=== PATIENT | female | born 1975 | race Caucasian/White ===

== ENCOUNTER → 2017-07-31 | Outpatient (CLI) | payer BC ==
[~2017-07-31] MED LIST: ALBU90AE IH; CETI-101 PO; CLOB30CR27 TP; DIPH25CA83 PO; DIPH25TA23 PO; FLU60SYR *; LEVO500T2 PO; LORA2TAB2 PO; MONT10TA21 PO; TC1U15 TOP; ZOLP10TA6 PO
[2017-08-01 06:56] LABS: BASOPHILS % 0.5 % (0.0-2.0); EOSINOPHILS % 1.4 % (0.0-5.0); HEMATOCRIT. 36.1 % (36.0-48.0); HEMOGLOBIN. 12.3 g/dL (12.0-16.0); LYMPHOCYTES % 40.2 % (20.0-50.0); MEAN CORPUSCULAR HEMOGLOBIN 31.4 pg (28.0-32.0); MEAN CORPUSCULAR VOLUME 92.1 fL (81.0-99.0); MEAN PLATELET VOLUME 8.2 fl (7.4-10.4); MONOCYTES % 6.3 % (2.0-8.0); NEUTROPHILS % 51.6 % (40.0-76.0); PLATELET 285 x1000/uL (130-400); RED BLOOD CELL COUNT 3.92 mill/uL (4.2-5.4); RED CELL DISTRIBUTION WIDTH 12.9 % (11.6-14.6)
[2017-08-01 07:15] LABS: CHLORIDE 103 mEq/L (98-107)
[2017-08-01 07:28] LABS: HDL CHOLESTEROL 75 mg/dL (40-59); LDL CHOLESTEROL 84 mg/dL (5-100); TOTAL IRON BINDING CAPACITY 394 ug/dL (250-450)
== END | disposition home or self-care (01) ==
LOC: LAB 21:13
PROVIDERS: ATTEND Internal Medicine Critical Care Medicine
DX: K59.00 Constipation, unspecified (principal); K42.9 Umbilical hernia without obstruction or gangrene; M54.5 Low back pain; R79.89 Other specified abnormal findings of blood chemistry
CPT/HCPCS: 36415; 80053; 80061; 82306; 83540; 83550; 85025

== ENCOUNTER 2017-08-26 01:52 | Emergency (ER) | payer BC ==
[~2017-08-26] VITALS: Ht 167.6 cm; Wt 65.9 kg
[2017-08-26] MEDS ORDERED: SODIUM CHLORIDE 0.9% 1,000 ML IV SCH (02:23)
[2017-08-26] MEDS ORDERED: DIPHENHYDRAMINE 50MG/ML VIAL IV ONE (02:30)
[2017-08-26] MEDS ORDERED: METHYLPREDNISOLONE SOD SUCC 125 MG/2 ML VIAL IV ONE (02:30)
[2017-08-26] MEDS ORDERED: FAMOTIDINE 20MG/2ML VIAL IV ONE (02:30)
[2017-08-26] MEDS ORDERED: HYDROXYZINE 25MG TABLET PO ONE (05:45)
[2017-08-26 06:08] VITALS: BP 131/74
== END 2017-08-26 07:00 | disposition home or self-care (01) ==
LOC: ER 01:52
DX: T78.40XA Allergy, unspecified, initial encounter (principal); J45.909 Unspecified asthma, uncomplicated; L30.9 Dermatitis, unspecified
CPT/HCPCS: 96374; 96375; 99284; J1200; J2930; J3490; J7030; Z7610

== ENCOUNTER → 2017-09-29 | Outpatient (CLI) | payer BC ==
[2017-09-29 11:27] LABS: PARTIAL THROMBOPLASTIN TIME 26.4 sec (23.4-31.0); PROTHROMBIN TIME 10.3 sec (9.4-11.6)
[2017-09-29 11:28] LABS: BASOPHILS % 0.4 % (0.0-2.0); CLARITY URINE CLEAR (CLEAR); COLOR URINE YELLOW (YELLOW); EOSINOPHILS % 1.3 % (0.0-5.0); HEMATOCRIT. 39.3 % (36.0-48.0); HEMOGLOBIN. 12.9 g/dL (12.0-16.0); KETONES URINE NEGATIVE (NEGATIVE); LEUKOCYTE ESTERASE URINE 2+ (NEGATIVE); LYMPHOCYTES % 31.3 % (20.0-50.0); MEAN CORPUSCULAR HEMOGLOBIN 30.9 pg (28.0-32.0); MEAN CORPUSCULAR VOLUME 93.7 fL (81.0-99.0); MONOCYTES % 6.1 % (2.0-8.0); NEUTROPHILS % 60.9 % (40.0-76.0); NITRITE URINE POSITIVE (NEGATIVE); OCCULT BLOOD URINE NEGATIVE (NEGATIVE); PH URINE 5.5 (4.5-8.0); PLATELET 317 x1000/uL (130-400); PROTEIN URINE NEGATIVE (NEGATIVE); RED BLOOD CELL COUNT 4.19 mill/uL (4.2-5.4); RED CELL DISTRIBUTION WIDTH 13.3 % (11.6-14.6); SPECIFIC GRAVITY URINE 1.021 (1.005-1.030); UROBILINOGEN URINE 0.2 E.U./dL (0.2-1.0)
[2017-09-29 11:32] LABS: CHLORIDE 106 mEq/L (98-107)
== END | disposition home or self-care (01) ==
LOC: LAB 10:51
PROVIDERS: ATTEND Internal Medicine Critical Care Medicine
DX: D50.9 Iron deficiency anemia, unspecified (principal); E78.5 Hyperlipidemia, unspecified; E55.9 Vitamin D deficiency, unspecified; J45.909 Unspecified asthma, uncomplicated
CPT/HCPCS: 36415; 80053; 81003; 85025; 85610; 85730; 87077; 87086; 87186

== ENCOUNTER 2017-10-16 07:59 | Day surgery (SDC) | payer BC ==
[~2017-10-16] VITALS: Ht 167.6 cm; Wt 67.6 kg
[~2017-10-16 07:59] MED LIST changes: -CETI-101 PO
[2017-10-16] MEDS ORDERED: LACTATED RINGERS 1,000 ML IV SCH (09:00)
[2017-10-16 09:23] LABS: UCG SCREEN NEGATIVE
[2017-10-16] MEDS ORDERED: CETI-101 PO (10:05)
[2017-10-16] MEDS ORDERED: BUPIVACAINE HCL/PF 0.5% (5MG/ML) 10ML ONE (11:21)
[2017-10-16] MEDS ORDERED: FENTANYL CITRATE/PF 50MCG/ML 2ML VIAL ONE (11:39)
[2017-10-16] MEDS ORDERED: PROPOFOL 200MG/20ML VIAL IV ONE (11:39)
[2017-10-16] MEDS ORDERED: VECURONIUM BROMIDE 10 MG/VIAL IV ONE (11:40)
[2017-10-16] MEDS ORDERED: LIDOCAINE HCL/PF 1% 10 MG/ML 5ML VIAL ONE (11:40)
[2017-10-16] MEDS ORDERED: SUCCINYLCHOLINE CHLORIDE 200MG/10ML VIAL IV ONE (11:40)
[2017-10-16] MEDS ORDERED: MIDAZOLAM HCL 2 MG/2 ML VIAL ONE (11:40)
[2017-10-16] MEDS ORDERED: CEFAZOLIN SODIUM 1000MG/VIAL ONE (11:40)
[2017-10-16] MEDS ORDERED: SKIN ADHESIVE 0.7 GM EA TOP ONE (11:57)
[2017-10-16] MEDS ORDERED: NEOSTIGMINE METHYLSULFATE 1MG/ML 10 ML VIAL ONE (11:58)
[2017-10-16] MEDS ORDERED: GLYCOPYRROLATE 0.2 MG/ML 2ML VIAL ONE (11:58)
[2017-10-16] MEDS ORDERED: KETOROLAC 30MG/ML VIAL ONE (11:58)
[2017-10-16] MEDS ORDERED: DEXAMETHASONE 4MG/ML 1ML VIAL ONE (11:59)
[2017-10-16] MEDS ORDERED: METOCLOPRAMIDE HCL 10MG/2ML VIAL ONE (12:02)
[2017-10-16] MEDS ORDERED: ONDANSETRON HCL 4MG/2ML VIAL ONE (12:02)
[2017-10-16 13:12] VITALS: BP 130/76
[2017-10-16] MEDS ORDERED: HYDROMORPHONE HCL/PF 2MG/ML CPJ ONE (13:16)
[2017-10-16] MEDS ORDERED: SODIUM CHLORIDE 0.9% 1,000 ML IV ONE (13:42)
[2017-10-16] MEDS ORDERED: HYDROMORPHONE HCL/PF 2MG/ML CPJ IV PRN (13:45)
[2017-10-16] MEDS ORDERED: MEPERIDINE HCL/PF 25MG/ML CPJ IV PRN ×2 (13:45)
[2017-10-16] MEDS ORDERED: ONDANSETRON HCL 4MG/2ML VIAL IV PRN (13:45)
== END 2017-10-16 15:00 | disposition home or self-care (01) ==
LOC: OR 07:59
PROVIDERS: ATTEND Surgery
DX: K43.9 Ventral hernia without obstruction or gangrene (principal); N39.0 Urinary tract infection, site not specified; B96.29 Other Escherichia coli [E. coli] as the cause of diseases classified elsewhere; F41.1 Generalized anxiety disorder; G47.09 Other insomnia; L28.0 Lichen simplex chronicus; J45.909 Unspecified asthma, uncomplicated; Z79.899 Other long term (current) drug therapy; Z98.890 Other specified postprocedural states
CPT/HCPCS: 49560; 49568; 81025; C1781; G0168; J0330; J0690; J1100; J1170; J1885; J2250; J2405; J2710; J2765; J3010; J3490; J7120; J2704